=== PATIENT | male | born 1965 | race African-American/Black ===

== ENCOUNTER 2017-04-16 13:16 | Emergency (ER) | payer MEDICAID, OTHER ==
[~2017-04-16] VITALS: Ht 180.3 cm; Wt 113.0 kg
[2017-04-16 13:37] VITALS: BP 158/97
[2017-04-16] MEDS ORDERED: ATEN-42 PO (13:42)
[2017-04-16] MEDS ORDERED: LIDOCAINE HCL 1% 20ML VIAL (Pyxis) INJ INFIL ONE (17:15)
[2017-04-16] MEDS ORDERED: BACITRACIN ZINC OINT UDPKT TOP ONE (18:15)
== END 2017-04-16 18:23 | disposition home or self-care (01) ==
LOC: ER 14:30
DX: T16.2XXA Foreign body in left ear, initial encounter (principal); X58.XXXA Exposure to other specified factors, initial encounter; Y93.9 Activity, unspecified; Y92.9 Unspecified place or not applicable; I10 Essential (primary) hypertension; E11.9 Type 2 diabetes mellitus without complications; G47.30 Sleep apnea, unspecified
CPT/HCPCS: 99284; J3490; Z7610

== ENCOUNTER 2018-03-14 11:15 | Emergency (ER) | payer MEDICARE, MEDICAID ==
[~2018-03-14] VITALS: Ht 180.3 cm; Wt 100.0 kg
[~2018-03-14 11:15] MED LIST: ATEN-42 PO
[2018-03-14 12:15] VITALS: BP 119/77
== END 2018-03-14 17:22 | disposition home or self-care (01) ==
LOC: ER 11:15
DX: H10.89 Other conjunctivitis (principal); I10 Essential (primary) hypertension; Z88.8 Allergy status to other drugs, medicaments and biological substances
CPT/HCPCS: 99283

== ENCOUNTER 2018-07-25 16:27 | Emergency (ER) | payer MEDICARE, MEDICAID ==
[~2018-07-25] VITALS: Ht 180.3 cm; Wt 100.0 kg
[2018-07-25] MEDS ORDERED: APIXABAN 5 MG TABLET PO STA (22:01)
[2018-07-25 22:38] VITALS: BP 131/79
== END 2018-07-25 22:38 | disposition home or self-care (01) ==
LOC: ER 16:27
DX: I82.432 Acute embolism and thrombosis of left popliteal vein (principal); E11.9 Type 2 diabetes mellitus without complications; I10 Essential (primary) hypertension; Z88.8 Allergy status to other drugs, medicaments and biological substances
CPT/HCPCS: 93971; 99284

== ENCOUNTER 2019-04-24 18:23 | Inpatient (IN) | payer MEDICARE, MEDICAID ==
[~2019-04-24] VITALS: Ht 180.3 cm; Wt 119.7 kg
[2019-04-24] MEDS ORDERED: ACETAMINOPHEN WITH CODEINE 300/30MG TABLET PO ONE (21:30)
[2019-04-24] MEDS ORDERED: HYDROCODONE/ACETAMINOPHEN 5/325MG TABLET PO ONE (21:30)
[2019-04-24 21:57] LABS: BASOPHILS % 0.3 % (0.0-2.0); EOSINOPHILS % 3.9 % (0.0-5.0); HEMATOCRIT. 42.6 % (42.0-52.0); HEMOGLOBIN. 14.3 g/dL (14.0-18.0); LYMPHOCYTES % 34.7 % (20.0-50.0); MEAN CORPUSCULAR VOLUME 86.3 fL (80.0-94.0); MEAN PLATELET VOLUME 8.5 fl (7.4-10.4); MONOCYTES % 6.9 % (2.0-8.0); NEUTROPHILS % 54.2 % (40.0-76.0); PLATELET 243 x1000/uL (130-400); RED BLOOD CELL COUNT 4.93 mill/uL (4.7-6.1); RED CELL DISTRIBUTION WIDTH 15.1 % (11.6-14.6)
[2019-04-24 22:04] LABS: CHLORIDE 108 mEq/L (98-107)
[2019-04-24] MEDS ORDERED: POTASSIUM CHLORIDE 20MEQ/PACKET PO ONE (23:30)
[2019-04-24] MEDS ORDERED: POTASSIUM CHLORIDE 20MEQ TABLET SR PO ONE (23:30)
[2019-04-24] MEDS ORDERED: HYDRALAZINE HCL 100MG TABLET PO ONE (23:30)
[2019-04-25] MEDS ORDERED: HYDRALAZINE 20MG/ML VIAL IV ONE (01:45)
[2019-04-25] MEDS ORDERED: ONDANSETRON HCL 4MG/2ML INJ IV PRN (02:00)
[2019-04-25] MEDS ORDERED: HYDROCODONE/ACETAMINOPHEN 5/325MG TABLET PO PRN (02:00)
[2019-04-25] MEDS ORDERED: GUAIFENESIN 200MG/10ML SUGAR FREE UDC PO PRN (02:00)
[2019-04-25] MEDS ORDERED: IPRATROPIUM/ALBUTEROL 0.5-3(2.5)MG/3ML NEB HHN PRN (02:00)
[2019-04-25] MEDS ORDERED: MAGNESIUM/ALUMINUM HYDROXIDE/SIMETHICONE 30ML UDC PO PRN (02:00)
[2019-04-25] MEDS ORDERED: LORAZEPAM 0.5MG TABLET PO PRN (02:00)
[2019-04-25] MEDS ORDERED: DIPHENHYDRAMINE 50MG/ML VIAL IV PRN (02:00)
[2019-04-25] MEDS ORDERED: DOCUSATE SODIUM 100MG CAPSULE PO PRN (02:00)
[2019-04-25 04:30] VITALS: BP 145/95
[2019-04-25] MEDS ORDERED: HYDR-3280 PO (06:04)
[2019-04-25] MEDS ORDERED: LOSA100T32 PO (06:04)
[2019-04-25] MEDS ORDERED: CHLO25TA2 PO (06:04)
[2019-04-25] MEDS ORDERED: AMLO10TA80 PO (06:04)
[2019-04-25] MEDS ORDERED: GLIP5TAB12 PO (06:04)
[2019-04-25] MEDS: ASPIRIN 81MG EC TABLET PO SCH (07:43)
[2019-04-25] MEDS: ACETAMINOPHEN 325MG TABLET PO PRN ×2 (07:43→11:40)
[2019-04-25] MEDS: AMLODIPINE 10MG TABLET PO SCH (07:43)
[2019-04-25 08:00] VITALS: BP 142/98
[2019-04-25 12:00] VITALS: BP_SYST 209; BP_SYST 214; BP_DIAS 122; BP_DIAS 124; BP_DIAS 129
[2019-04-25] MEDS ORDERED: DEXTROSE 50% WATER 50ML SYRINGE IV PRN (12:45)
[2019-04-25] MEDS: INSULIN LISPRO 100 UNITS/ML SUBCUT SCH ×3 (13:10→20:57)
[2019-04-25] MEDS: CLONIDINE 0.1MG TABLET PO PRN (13:14)
[2019-04-25] MEDS: BLOOD SUGAR DIAGNOSTIC STRIP TEST SCH ×3 (13:22→20:57)
[2019-04-25] MEDS ORDERED: HYDRALAZINE HCL 25MG TABLET PO SCH (14:00)
[2019-04-25 16:00] VITALS: BP 151/94
[2019-04-25] MEDS: LOSARTAN POTASSIUM 100 MG TABLET PO SCH (16:25)
[2019-04-25] MEDS: HYDRALAZINE HCL 50MG TABLET PO SCH ×2 (16:25→21:00)
[2019-04-25 16:48] LABS: CHLORIDE 104 mEq/L (98-107)
[2019-04-25] MEDS ORDERED: POTASSIUM CHLORIDE 20MEQ TABLET SR PO NR ×2 (18:30→20:30)
[2019-04-25 19:39] LABS: CLARITY URINE CLEAR (CLEAR); COLOR URINE YELLOW (YELLOW); KETONES URINE NEGATIVE (NEGATIVE); LEUKOCYTE ESTERASE URINE TRACE (NEGATIVE); NITRITE URINE NEGATIVE (NEGATIVE); OCCULT BLOOD URINE NEGATIVE (NEGATIVE); PH URINE 6.5 (4.5-8.0); PROTEIN URINE NEGATIVE (NEGATIVE); SPECIFIC GRAVITY URINE 1.017 (1.005-1.030); UROBILINOGEN URINE 0.2 E.U./dL (0.2-1.0)
[2019-04-25 19:49] LABS: *AMPHETAMINES SCREEN URINE NEGATIVE (NEGATIVE); *BARBITURATES SCREEN URINE NEGATIVE (NEGATIVE); *BENZODIAZEPINES SCREEN URINE PRESUMTIVE POSITIVE (NEGATIVE); *COCAINE SCREEN URINE NEGATIVE (NEGATIVE)
[2019-04-25 19:50] LABS: CANNABINOID URINE SCREEN NEGATIVE (NEGATIVE); METHADONE URINE SCREEN NEGATIVE (NEGATIVE); OPIATES URINE SCREEN PRESUMTIVE POSITIVE (NEGATIVE); PHENCYCLIDINE URINE SCREEN NEGATIVE (NEGATIVE)
[2019-04-25 20:00] VITALS: BP 164/107
[2019-04-26] VITALS: BP 140/87
[2019-04-26 04:00] VITALS: BP 158/85
[2019-04-26] MEDS: HYDRALAZINE HCL 50MG TABLET PO SCH ×2 (05:02→13:47)
[2019-04-26 07:37] LABS: BASOPHILS % 0.3 % (0.0-2.0); EOSINOPHILS % 6.1 % (0.0-5.0); HEMATOCRIT. 42.1 % (42.0-52.0); MEAN CORPUSCULAR HEMOGLOBIN 28.6 pg (28.0-32.0); MEAN CORPUSCULAR VOLUME 86.2 fL (80.0-94.0); MEAN PLATELET VOLUME 8.8 fl (7.4-10.4); MONOCYTES % 6.5 % (2.0-8.0); NEUTROPHILS % 58.1 % (40.0-76.0); PLATELET 245 x1000/uL (130-400); RED BLOOD CELL COUNT 4.89 mill/uL (4.7-6.1); RED CELL DISTRIBUTION WIDTH 15.3 % (11.6-14.6)
[2019-04-26 07:38] LABS: CHLORIDE 107 mEq/L (98-107)
[2019-04-26] MEDS: BLOOD SUGAR DIAGNOSTIC STRIP TEST SCH ×2 (07:40→12:42)
[2019-04-26 07:51] LABS: LDL CHOLESTEROL 76 mg/dL (5-100)
[2019-04-26 07:52] LABS: HDL CHOLESTEROL 31 mg/dL (40-59); T4 FREE 0.96 ng/dL (0.76-1.46)
[2019-04-26] MEDS: INSULIN LISPRO 100 UNITS/ML SUBCUT SCH ×2 (08:10→13:10)
[2019-04-26] MEDS: ASPIRIN 81MG EC TABLET PO SCH (08:46)
[2019-04-26] MEDS: AMLODIPINE 10MG TABLET PO SCH (08:46)
[2019-04-26] MEDS: LOSARTAN POTASSIUM 100 MG TABLET PO SCH (08:46)
[2019-04-26] MEDS: CLONIDINE 0.1MG TABLET PO PRN (08:47)
[2019-04-26 12:00] VITALS: BP 157/93
[2019-04-26] MEDS ORDERED: POTASSIUM CHLORIDE 20MEQ TABLET SR PO NR (13:15)
[2019-04-26] MEDS ORDERED: CLON0.1T14 PO (13:31)
[2019-04-26] MEDS ORDERED: COR6 PO (13:31)
[2019-04-26] MEDS ORDERED: HYDR-4135 PO (13:31)
[2019-04-26] MEDS ORDERED: CLONIDINE 0.2MG TABLET PO SCH (14:00)
[2019-04-26] MEDS ORDERED: POTASSIUM CHLORIDE 20MEQ/PACKET PO NR (15:15)
[2019-04-26 15:58] VITALS: BP 134/82
[2019-04-26 16:00] VITALS: BP 132/82
[2019-04-26] MEDS ORDERED: CARVEDILOL 6.25 MG TABLET PO SCH (21:00)
== END 2019-04-26 18:10 | disposition home or self-care (01) | DRG 641 ==
LOC: ER 18:23 → 7WST 04-25 01:43 → ENRESERV 04-25 03:20
PROVIDERS: ADMIT Family Medicine Adult Medicine; ATTEND Family Medicine Adult Medicine
DX: E87.6 Hypokalemia (principal); I10 Essential (primary) hypertension; E11.9 Type 2 diabetes mellitus without complications; Z88.8 Allergy status to other drugs, medicaments and biological substances; Z79.899 Other long term (current) drug therapy; Z86.718 Personal history of other venous thrombosis and embolism; Z79.84 Long term (current) use of oral hypoglycemic drugs; Z82.49 Family history of ischemic heart disease and other diseases of the circulatory system
CPT/HCPCS: 36415; 71045; 80061; 80305; 81003; 82962; 83036; 83735; 84439; 84443; 84481; 84484; 93005; 93306; 93970; 96374; 99285; J0360; J7070; J7620

== ENCOUNTER → 2019-06-26 | Outpatient (CLI) | payer MEDICARE, MEDICAID ==
[~2019-06-26] MED LIST changes: +AMLO10TA80 PO; -ATEN-42 PO; +CLON0.1T14 PO; +COR6 PO; +GLIP5TAB12 PO; +HYDR-3280 PO; +HYDR-4135 PO; +LOSA100T32 PO
== END | disposition home or self-care (01) ==
LOC: US 10:45
PROVIDERS: ATTEND Internal Medicine Nephrology
DX: I10 Essential (primary) hypertension (principal)
CPT/HCPCS: 76770

== ENCOUNTER 2019-08-22 13:19 | Emergency (ER) | payer MEDICARE, MEDICAID ==
[~2019-08-22] VITALS: Ht 180.3 cm; Wt 107.0 kg
[2019-08-22] MEDS ORDERED: ASPIRIN 81MG TABLET PO ONE (14:00)
[2019-08-22 14:15] VITALS: BP 125/59
[2019-08-22] MEDS: NITROGLYCERIN 0.4MG TABLET SL SL PRN ×2 (14:22→15:45)
[2019-08-22 14:37] LABS: BASOPHILS % 0.4 % (0.0-2.0); EOSINOPHILS % 8.9 % (0.0-5.0); HEMATOCRIT. 43.4 % (42.0-52.0); HEMOGLOBIN. 14.6 g/dL (14.0-18.0); LYMPHOCYTES % 28.3 % (20.0-50.0); MEAN CORPUSCULAR HEMOGLOBIN 28.7 pg (28.0-32.0); MEAN CORPUSCULAR VOLUME 85.5 fL (80.0-94.0); MEAN PLATELET VOLUME 8.8 fl (7.4-10.4); MONOCYTES % 7.3 % (2.0-8.0); NEUTROPHILS % 55.1 % (40.0-76.0); PLATELET 213 x1000/uL (130-400); RED BLOOD CELL COUNT 5.08 mill/uL (4.7-6.1); RED CELL DISTRIBUTION WIDTH 14.8 % (11.6-14.6)
[2019-08-22 14:44] LABS: CHLORIDE 104 mEq/L (98-107)
[2019-08-22 14:48] LABS: ETHANOL BLOOD 10 mg/dL
[2019-08-22 15:08] LABS: *AMPHETAMINES SCREEN URINE NEGATIVE (NEGATIVE); *BARBITURATES SCREEN URINE NEGATIVE (NEGATIVE); *BENZODIAZEPINES SCREEN URINE PRESUMTIVE POSITIVE (NEGATIVE)
[2019-08-22 15:09] LABS: *COCAINE SCREEN URINE NEGATIVE (NEGATIVE); CANNABINOID URINE SCREEN NEGATIVE (NEGATIVE); METHADONE URINE SCREEN NEGATIVE (NEGATIVE); OPIATES URINE SCREEN NEGATIVE (NEGATIVE); PHENCYCLIDINE URINE SCREEN NEGATIVE (NEGATIVE)
[2019-08-22] MEDS ORDERED: POTASSIUM CHLORIDE 20MEQ TABLET SR PO ONE (15:15)
[2019-08-22] MEDS ORDERED: KCL 20MEQ/100ML PREMIX 100 ML IV ONE (15:15)
[2019-08-22] MEDS ORDERED: CLONIDINE 0.1MG TABLET PO ONE (15:30)
== END 2019-08-22 16:21 | disposition left against medical advice (07) ==
LOC: ER 13:19 → CANBEDREQ 21:14
DX: R07.89 Other chest pain (principal); I10 Essential (primary) hypertension; E87.6 Hypokalemia; Z53.29 Procedure and treatment not carried out because of patient's decision for other reasons; E11.9 Type 2 diabetes mellitus without complications; Z98.890 Other specified postprocedural states; Z79.899 Other long term (current) drug therapy
CPT/HCPCS: 36415; 71045; 80053; 80305; 80320; 83880; 84484; 85025; 93005; 96365; 99285; J3480; G0480

== ENCOUNTER 2019-12-06 11:06 | Emergency (ER) | payer MEDICARE, MEDICAID ==
[~2019-12-06] VITALS: Ht 180.3 cm; Wt 107.0 kg
[~2019-12-06 11:06] MED LIST changes: -GLIP5TAB12 PO
[2019-12-06] MEDS ORDERED: TRAMADOL 50MG TABLET PO ONE (12:15)
[2019-12-06 13:39] VITALS: BP 128/78
== END 2019-12-06 13:39 | disposition home or self-care (01) ==
LOC: ER 11:06
DX: S83.92XA Sprain of unspecified site of left knee, initial encounter (principal); S93.402A Sprain of unspecified ligament of left ankle, initial encounter; E11.9 Type 2 diabetes mellitus without complications; I10 Essential (primary) hypertension; Z94.5 Skin transplant status; W01.0XXA Fall on same level from slipping, tripping and stumbling without subsequent striking against object, initial encounter; Y93.9 Activity, unspecified; Y92.69 Other specified industrial and construction area as the place of occurrence of the external cause; Z88.8 Allergy status to other drugs, medicaments and biological substances
CPT/HCPCS: 73560; 73600; 99284

== ENCOUNTER 2020-05-31 13:36 | Emergency (ER) | payer MEDICARE, MEDICAID ==
[~2020-05-31] VITALS: Ht 180.3 cm; Wt 100.0 kg
[2020-05-31 16:30] VITALS: BP 129/83
== END 2020-05-31 16:31 | disposition home or self-care (01) ==
LOC: ER 13:36
DX: B34.9 Viral infection, unspecified (principal); Z03.818 Encounter for observation for suspected exposure to other biological agents ruled out; I10 Essential (primary) hypertension; E11.9 Type 2 diabetes mellitus without complications; Z88.4 Allergy status to anesthetic agent; Z88.8 Allergy status to other drugs, medicaments and biological substances
CPT/HCPCS: 71045; 87635; 99284

== ENCOUNTER 2020-07-05 10:47 | Emergency (ER) | payer MEDICARE, MEDICAID ==
[~2020-07-05] VITALS: Ht 180.3 cm; Wt 109.0 kg
[~2020-07-05 10:47] MED LIST changes: -HYDR-3280 PO; +HYDR-4350 PO
[2020-07-05] MEDS ORDERED: KETOROLAC 30MG/ML VIAL IM ONE (11:45)
[2020-07-05] MEDS ORDERED: NAPR-679 MT (13:17)
[2020-07-05 13:24] VITALS: BP 141/86
== END 2020-07-05 13:26 | disposition home or self-care (01) ==
LOC: ER 11:02
DX: M25.562 Pain in left knee (principal); I10 Essential (primary) hypertension; Z88.4 Allergy status to anesthetic agent; Z88.8 Allergy status to other drugs, medicaments and biological substances; Z98.890 Other specified postprocedural states
CPT/HCPCS: 73560; 96372; 99283; J1885

== ENCOUNTER 2020-10-14 13:01 | Emergency (ER) | payer MEDICARE, MEDICAID ==
[~2020-10-14] VITALS: Ht 180.3 cm; Wt 111.0 kg
[~2020-10-14 13:01] MED LIST changes: +NAPR-679 MT
[2020-10-14] MEDS ORDERED: IBUPROFEN 600MG TABLET PO ONE (15:30)
[2020-10-14 17:09] VITALS: BP 172/95
== END 2020-10-14 17:12 | disposition home or self-care (01) ==
LOC: ER 13:01
DX: I10 Essential (primary) hypertension (principal); M25.561 Pain in right knee; Z88.8 Allergy status to other drugs, medicaments and biological substances
CPT/HCPCS: 73560; 99283

== ENCOUNTER 2021-05-27 12:07 | Emergency (ER) | payer MEDICARE, MEDICAID ==
[~2021-05-27] VITALS: Ht 180.3 cm; Wt 111.0 kg
[2021-05-27 12:22] VITALS: BP 172/103
== END 2021-05-27 12:39 | disposition home or self-care (01) ==
LOC: ER 12:07
DX: R05.9 Cough, unspecified (principal); J02.9 Acute pharyngitis, unspecified; R09.89 Other specified symptoms and signs involving the circulatory and respiratory systems; Z98.890 Other specified postprocedural states
CPT/HCPCS: 99281

== ENCOUNTER 2021-07-28 09:59 | Emergency (ER) | payer MEDICARE, MEDICAID ==
[~2021-07-28] VITALS: Ht 180.3 cm; Wt 107.0 kg
[2021-07-28 10:19] VITALS: BP 148/106
[2021-07-28 12:45] LABS: BASOPHILS % 0.5 % (0.0-2.0); HEMATOCRIT. 42.3 % (42.0-52.0); HEMOGLOBIN. 14.3 g/dL (14.0-18.0); LYMPHOCYTES % 23.1 % (20.0-50.0); MEAN CORPUSCULAR HEMOGLOBIN 29.5 pg (28.0-32.0); MEAN CORPUSCULAR VOLUME 87.5 fL (80.0-94.0); MEAN PLATELET VOLUME 8.7 fl (7.4-10.4); MONOCYTES % 8.6 % (2.0-8.0); NEUTROPHILS % 60.8 % (40.0-76.0); PLATELET 227 x1000/uL (130-400); RED BLOOD CELL COUNT 4.83 mill/uL (4.7-6.1); RED CELL DISTRIBUTION WIDTH 15.5 % (11.6-14.6)
[2021-07-28 12:51] LABS: CLARITY URINE CLEAR (CLEAR); COLOR URINE DARK YELLOW (YELLOW); KETONES URINE TRACE (NEGATIVE); LEUKOCYTE ESTERASE URINE 1+ (NEGATIVE); NITRITE URINE NEGATIVE (NEGATIVE); OCCULT BLOOD URINE NEGATIVE (NEGATIVE); PROTEIN URINE 1+ (NEGATIVE); SPECIFIC GRAVITY URINE 1.022 (1.005-1.030)
[2021-07-28 12:54] LABS: CHLORIDE 107 mEq/L (98-107)
[2021-07-28] MEDS ORDERED: CEFP200T13 MT (14:09)
[2021-07-28] MEDS ORDERED: POTASSIUM CHLORIDE 20MEQ TABLET SR PO ONE (14:15)
== END 2021-07-28 14:26 | disposition home or self-care (01) ==
LOC: ER 10:32
DX: N39.0 Urinary tract infection, site not specified (principal); I10 Essential (primary) hypertension; N40.0 Benign prostatic hyperplasia without lower urinary tract symptoms; Z94.5 Skin transplant status
CPT/HCPCS: 36415; 80048; 81003; 85025; 99283

== ENCOUNTER 2021-11-24 18:58 | Emergency (ER) | payer MEDICARE, MEDICAID ==
[~2021-11-24] VITALS: Ht 180.3 cm; Wt 111.0 kg
[~2021-11-24 18:58] MED LIST changes: +CEFP200T13 MT
[2021-11-24] MEDS ORDERED: LABETALOL 5MG/ML SYR 20 MG/4 ML SYRINGE IV NR (23:15)
[2021-11-25] MEDS ORDERED: ENALAPRIL 2.5MG/2ML VIAL 2ML IV ONE (01:30)
[2021-11-25] MEDS ORDERED: ENALAPRIL 1.25MG/ML VIAL 1ML IV NR (02:00)
[2021-11-25] MEDS ORDERED: HYDRALAZINE 20MG/ML VIAL IV ONE (03:15)
[2021-11-25 03:33] LABS: BASOPHILS % 0.4 % (0.0-2.0); HEMATOCRIT. 41.3 % (42.0-52.0); HEMOGLOBIN. 13.6 g/dL (14.0-18.0); MEAN CORPUSCULAR HEMOGLOBIN 28.4 pg (28.0-32.0); MEAN CORPUSCULAR VOLUME 86.3 fL (80.0-94.0); MEAN PLATELET VOLUME 8.9 fl (7.4-10.4); MONOCYTES % 3.6 % (2.0-8.0); PLATELET 228 x1000/uL (130-400); RED BLOOD CELL COUNT 4.78 mill/uL (4.7-6.1); RED CELL DISTRIBUTION WIDTH 15.7 % (11.6-14.6)
[2021-11-25 03:38] LABS: CHLORIDE 105 mEq/L (98-107)
[2021-11-25 04:20] VITALS: BP 167/96
[2021-11-25] MEDS ORDERED: AMLO10TA80 MT (04:33)
== END 2021-11-25 05:00 | disposition home or self-care (01) ==
LOC: ER 18:58
DX: I10 Essential (primary) hypertension (principal); Z91.14 Patient's other noncompliance with medication regimen; Z98.890 Other specified postprocedural states; Z79.899 Other long term (current) drug therapy; R51.9 Headache, unspecified
CPT/HCPCS: 36415; 80048; 85025; 96374; 96375; 99285; J0360; J3490

== ENCOUNTER 2022-04-04 10:29 | Emergency (ER) | payer MEDICARE, MEDICAID ==
[~2022-04-04] VITALS: Ht 175.3 cm; Wt 101.0 kg
[~2022-04-04 10:29] MED LIST changes: +AMLO10TA80 MT
[2022-04-04 11:50] VITALS: BP 157/88
[2022-04-04 12:07] LABS: BASOPHILS % 0.6 % (0.0-2.0); HEMATOCRIT. 39.6 % (42.0-52.0); HEMOGLOBIN. 13.2 g/dL (14.0-18.0); LYMPHOCYTES % 26.3 % (20.0-50.0); MEAN CORPUSCULAR HEMOGLOBIN 29.1 pg (28.0-32.0); MEAN CORPUSCULAR VOLUME 87.7 fL (80.0-94.0); MEAN PLATELET VOLUME 8.7 fl (7.4-10.4); MONOCYTES % 5.5 % (2.0-8.0); NEUTROPHILS % 61.6 % (40.0-76.0); PLATELET 242 x1000/uL (130-400); RED BLOOD CELL COUNT 4.52 mill/uL (4.7-6.1)
[2022-04-04 12:13] LABS: CHLORIDE 98 mEq/L (98-107)
[2022-04-04] MEDS ORDERED: PROT40 MT (13:12)
== END 2022-04-04 13:45 | disposition home or self-care (01) ==
LOC: ER 10:29
DX: T50.905A Adverse effect of unspecified drugs, medicaments and biological substances, initial encounter (principal); I10 Essential (primary) hypertension; Z88.8 Allergy status to other drugs, medicaments and biological substances; Z88.6 Allergy status to analgesic agent; Z79.899 Other long term (current) drug therapy; Z98.890 Other specified postprocedural states; X58.XXXA Exposure to other specified factors, initial encounter
CPT/HCPCS: 36415; 71045; 80053; 83880; 84484; 85025; 93005; 99285